=== PATIENT | female | born 1980 | race Two or more races ===

== ENCOUNTER → 2018-11-30 | Day surgery (SDC) | payer BC ==
[~2018-11-30] MED LIST: IV RINGERS,LACTATED 1000ML 1,000 ML IV SCH; LIDOCAINE 1% PF 2 ML VIAL. ID PRN; LIDOCAINE 2% PF 5 ML VIAL. ONE; LORA10TA68 PO; MIDAZOLAM HCL/PF 2 MG/2 ML VIAL. IV PRN; PROPOFOL 40 ML IV ONE; SERT50TA PO; fentaNYL PF VIAL 100 MCG/2 ML VIAL IV PRN
[2018-11-30 08:08] LABS: U PREG PATIENT NEGATIVE (NEG)
[2018-11-30 08:45] VITALS: BP 113/77
== END | disposition home or self-care (01) ==
LOC: SURG 07:22
PROVIDERS: ATTEND Internal Medicine Gastroenterology
DX: K64.0 First degree hemorrhoids (principal); Z82.49 Family history of ischemic heart disease and other diseases of the circulatory system; Z79.899 Other long term (current) drug therapy; Z98.890 Other specified postprocedural states; Z98.51 Tubal ligation status
CPT/HCPCS: 45378; 81025; J2001; J2704